=== PATIENT | male | born 1985 | race Caucasian/White ===

== ENCOUNTER 2021-01-01 02:37 | Emergency (ER) | payer OTHER | END 2021-01-01 03:15 | disposition home or self-care (01) | LOC: ER1 02:37 | DX: S60.222A Contusion of left hand, initial encounter (principal); F17.200 Nicotine dependence, unspecified, uncomplicated; Z88.2 Allergy status to sulfonamides; W22.8XXA Striking against or struck by other objects, initial encounter | CPT/HCPCS: 73130; 99283 ==